=== PATIENT | female | born 1960 | race Caucasian/White ===

== ENCOUNTER 2016-04-30 13:39 | Emergency (ER) | payer OTHER ==
[2016-04-30] MEDS ORDERED: SODIUM CHLORIDE 0.9% 1000ML 1,000 ML IVS PRN (13:51)
[2016-04-30] MEDS ORDERED: SODIUM CHLORIDE 0.9% (FLUSH) 10 ML SYG IV PRN (13:51)
[2016-04-30 13:55] VITALS: TEMP 98.2
[2016-04-30] MEDS ORDERED: MORPHINE SULFATE INJ 10 MG/ML VIAL IV ONE (13:58)
--- NOTE | 2016-04-30 14:30 | ED.PDOC ---
History of Present Illness - General Chief Complaint: Trauma Time Seen by Provider: 04/30/16 13:50 Source: patient, RN notes reviewed, Vital Signs reviewed, family - History of Present Illness Initial Comments: Patient does not recall her accident. The information is provided by her who was present. Patient was barrel riding when her horse fell and patient fell off horse. The horse got up and stepped on Patient's lower abdomen and left leg. Patient has pelvic pain, left leg pain, and left hand pain. Her neck is sore. She does not remember anything that happened. She did not lose consciousness. Occurred: just prior to arrival Severity: severe Pain Location: neck, abdomen, upper extremity Method of Injury: fall, other - blunt force trauma Improving Factors: nothing Worsening Factors: movement Loss of Consciousness: no loss of consciousness Associated Symptoms (Fall): abdominal pain, confusion, dizziness, neck pain, other - memory loss Allergies/Adverse Reactions: Allergies NO KNOWN ALLERGY Allergy (Verified 04/30/16 13:58) Home Medications: Ambulatory Orders Naproxen [Naprosyn] 500 mg PO BID #30 tab 04/30/16 Tramadol HCl 50 mg PO Q4H PRN #20 tab 04/30/16 tiZANidine [Zanaflex] 4 mg PO TID PRN #30 tab 04/30/16 Review of Systems - Review of Systems Constitutional: States: weakness EENTM: States: no symptoms reported. Denies: blurred vision Respiratory: States: no symptoms reported Cardiology: States: no symptoms reported Gastrointestinal/Abdominal: States: abdominal pain. Denies: nausea, vomiting Genitourinary: States: no symptoms reported Musculoskeletal: States: joint pain, muscle pain, neck pain Skin: States: change in color - ecchymosis Neurological: States: other - memory loss Endocrine: States: no symptoms reported Hematologic/Lymphatic: States: no symptoms reported All other Systems: Reviewed and Negative Past Medical History (General) - Patient Medical History Hx Seizures: No Hx Asthma: No Hx of COPD: No Hx Cardiac Disorders: No Hx Hypertension: No Hx Diabetes: No Hx Gastroesophageal Reflux: No Surgical History: Hysterectomy - Female History Patient : No Family Medical History - Family History Mother Family History: Unknown Physical Exam - Physical Exam General Appearance: Alert, Obvious distress, Well Groomed Head Injury: no evidence of injury Eye Exam: bilateral normal ENT Exam: hearing grossly normal, no evidence of ENT injury Neck Exam: full range of motion, normal alignment, muscle spasm, paraspinous muscle tender, tender lateral Cardiovascular/Respiratory: regular rate, rhythm, no M/R/G, normal peripheral pulses Gastrointestinal/Abdominal: normal bowel sounds, soft, no organomegaly, tenderness - Lower abdomen Back Exam: normal inspection, no vertebral tenderness Extremity Exam: no pedal edema, pelvis stable, bony-point tenderness, pain with movement, other Neurologic: purchasing/receiving II-XII nml as tested, no motor/sensory deficits, alert, normal mood/affect, oriented x 3 - Pauline Coma Score Best Eye Response (Pauline): (4) open spontaneously Best Verbal Response (Pauline): (5) oriented Best Motor Response ([place]): (6) obeys commands [place] Total: 15 Progress - Progress Progress: 04/30/16 14:28 Shortly after arrival, I discussed transferring Patient to [facility] because they are a Level 2 trauma center. Patient and her declined preparing for transfer at this time and they wanted to wait for the CT results. I explained the risk of waiting and they understood the risks. - Results/Orders Results/Orders: 04/30/16 04/30/16 04/30/16 13:51 14:40 15:09 Temperature 98.2 F Pulse Rate [ 97 H 69 65 APICAL] Respiratory 20 20 12 Rate Blood Pressure 116/82 117/66 115/78 [LEFT BRACHIAL] O2 Sat by Pulse 97 97 65 L Oximetry 04/30/16 16:00 Temperature Pulse Rate [ 67 APICAL] Respiratory 12 Rate Blood Pressure 128/68 [LEFT BRACHIAL] O2 Sat by Pulse 100 Oximetry 04/30/16 13:51 IV Care:Saline Lock per Protoc QSHIFT Telemetry .ONCE Sodium Chloride 0.9% (Flush) [Saline Flush Syringe] 10 ml IV PRN PRN Sodium Chloride 0.9% 1000ML [Ns 1000 ml] 1,000 ml IVS .QD EKG Stat 04/30/16 13:52 Hold Metformin x 48Hrs [id number] EKG Assessment ONCE Pulse Oximetry Assessment DAILY 05/01/16 09:00 Pulse Ox Daily Laboratory Results WBC 6.1 K/mm3 (4.8-10.8) 04/30/16 14:15 RBC 4.46 M/mm3 (4.20-5.40) 04/30/16 14:15 Hgb 13.2 gm/dL (12.0-16.0) 04/30/16 14:15 Hct 39.8 % (36.0-47.0) 04/30/16 14:15 MCV 89.2 fl (81.0-99.0) 04/30/16 14:15 MCH 29.5 pg (27.0-31.0) 04/30/16 14:15 MCHC 33.1 g/dL (33.0-37.0) 04/30/16 14:15 RDW 12.3 % (11.5-14.5) 04/30/16 14:15 Plt Count 233 K/mm3 (130-400) 04/30/16 14:15 MPV 9.1 fl (7.40-10.4) 04/30/16 14:15 Absolute Neuts (auto) 3.90 K/uL (1.8-6.8) 04/30/16 14:15 Absolute Lymphs (auto) 1.70 K/uL (1.0-3.4) 04/30/16 14:15 Absolute Monos (auto) 0.40 K/uL (0.2-0.8) 04/30/16 14:15 Absolute Eos (auto) 0.10 K/uL (0.0-0.4) 04/30/16 14:15 Absolute Basos (auto) 0.00 K/uL (0.0-0.1) 04/30/16 14:15 Neutrophils % 63.6 % (42.0-78.0) 04/30/16 14:15 Lymphocytes % 28.1 % (20.0-50.0) 04/30/16 14:15 Monocytes % 6.0 % (2.0-9.0) 04/30/16 14:15 Eosinophils % 1.6 % (1.0-5.0) 04/30/16 14:15 Basophils % 0.7 % (0.0-2.0) 04/30/16 14:15 PT 11.5 SECONDS (9.4-12.5) 04/30/16 14:15 INR 1.020 04/30/16 14:15 PTT (SP) 25.4 SECONDS (25.1-36.5) 04/30/16 14:15 Sodium 140 mmol/L (135-145) 04/30/16 14:15 Potassium 3.6 mmol/L (3.6-5.0) 04/30/16 14:15 Chloride 106 mmol/L (101-111) 04/30/16 14:15 Carbon Dioxide 25 mmol/L (21-31) 04/30/16 14:15 Anion Gap 12.6 (12-18) 04/30/16 14:15 BUN 24 mg/dL (7-18) H 04/30/16 14:15 Creatinine 0.70 mg/dL (0.6-1.3) 04/30/16 14:15 BUN/Creatinine Ratio 34.3 (10-20) H 04/30/16 14:15 Random Glucose 112 mg/dL (70-105) H 04/30/16 14:15 Serum Osmolality 284.2 mOsm/L (275-295) 04/30/16 14:15 Calcium 9.2 mg/dL (8.4-10.2) 04/30/16 14:15 Total Bilirubin 0.4 mg/dL (0.2-1.0) 04/30/16 14:15 AST 33 IU/L (10-42) 04/30/16 14:15 ALT 27 IU/L (10-60) 04/30/16 14:15 Alkaline Phosphatase 56 IU/L (42-121) 04/30/16 14:15 Serum Total Protein 7.3 gm/dL (6.4-8.2) 04/30/16 14:15 Albumin 4.5 g/dl (3.2-5.5) 04/30/16 14:15 Globulin 2.8 gm/dL (2.3-3.5) 04/30/16 14:15 Albumin/Globulin Ratio 1.6 (1.1-1.9) 04/30/16 14:15 Amylase 91 U/L (28-100) 04/30/16 14:15 Urine Color Yellow (Yellow) 04/30/16 15:11 Urine Appearance Clear (Clear) 04/30/16 15:11 Urine pH 7.0 (4.5-7.8) 04/30/16 15:11 Ur Specific [place] 1.015 (1.005-1.030) 04/30/16 15:11 Urine Protein Negative mg/dL 04/30/16 15:11 Urine Glucose (UA) Negative mg/dL (Negative) 04/30/16 15:11 Urine Ketones Negative mg/dL (NEGATIVE) 04/30/16 15:11 Urine Blood Negative (Negative) 04/30/16 15:11 Urine Nitrite Negative 04/30/16 15:11 Urine Bilirubin Negative (NEGATIVE) 04/30/16 15:11 Urine Urobilinogen 0.2 mg/dL (0.2-1.0) 04/30/16 15:11 Ur Leukocyte Esterase Negative (Negative) 04/30/16 15:11 Urine RBC 0 /hpf 04/30/16 15:11 Urine WBC 0 /hpf 04/30/16 15:11 Ur Epithelial Cells 0 /hpf 04/30/16 15:11 Urine Bacteria 0 04/30/16 15:11 Ethyl Alcohol 0.00 mg/dL (0-79) 04/30/16 14:15 CT: Head, c-spine, abdomen: No acute process in any of them. - EKG/XRAY/CT XRAY: hand - Left Xray Comments: Fracture base of 1st metacarpal CT Ordered: Yes CT Interpretation Call Back: No - Report sent - Additional EKG/XRAY/Consults XRAY #2: chest Comments: No acute process Departure - Departure Clinical Impression: Animal-rider injured by fall from or being thrown from horse in noncollision accident, Memory loss, short term Fracture of hand Qualifiers: Encounter type: initial encounter Fracture type: closed Laterality: left Qualifier Code: (S62.92XA) Unspecified fracture of left wrist and hand, initial encounter for closed fracture Sprain of neck Qualifiers: Encounter type: initial encounter Qualifier Code: (S13.9XXA) Sprain of joints and ligaments of unspecified parts of neck, initial encounter Contusion of abdominal wall Qualifiers: Encounter type: initial encounter Qualifier Code: (S30.1XXA) Contusion of abdominal wall, initial encounter Contusion of leg, left Qualifiers: Encounter type: initial encounter Qualifier Code: (S80.12XA) Contusion of left lower leg, initial encounter Closed head injury Qualifiers: Encounter type: initial encounter Qualifier Code: (S09.90XA) Unspecified injury of head, initial encounter Time of Disposition: 16:48 Disposition: Discharge to Home or Self Care Condition: Fair Departure Forms: ED Discharge - Pt. Copy, Patient Portal Self Enrollment Instructions: DI for Closed Head Injury, Closed Head Injury, Contusion, DI for Contusion, Neck Sprain, DI for Neck Sprain, DI for a Hand Fracture Diet: resume usual diet Activity: increase activity as tolerated Prescriptions: Naproxen [Naprosyn] 500 mg PO BID #30 tab Tramadol HCl 50 mg PO Q4H PRN #20 tab PRN Reason: Pain tiZANidine [Zanaflex] 4 mg PO TID PRN #30 tab PRN Reason: Muscle Spasms Home Medications: Ambulatory Orders Naproxen [Naprosyn] 500 mg PO BID #30 tab 04/30/16 Tramadol HCl 50 mg PO Q4H PRN #20 tab 04/30/16 tiZANidine [Zanaflex] 4 mg PO TID PRN #30 tab 04/30/16 Additional Instructions: Follow up for any head injury or abdominal pain concerns.
--- NOTE | 2016-04-30 14:54 | RAD ---
EXAM DESCRIPTION: Chest,1 View CLINICAL HISTORY: Fell off of and stepped on by horse COMPARISON: None FINDINGS: Cardiac silhouette is within normal limits. Aorta is tortuous. There is no focal parenchymal or pleural disease. There is no acute osseous process visualized. IMPRESSION: No evidence of acute cardiopulmonary disease. Electronically signed by: Rufus Villalba MD 04/30/2016 2:53 PM COMMUTATOR TESTER
--- NOTE | 2016-04-30 15:09 | CT ---
EXAM DESCRIPTION: Cervical Spine 04/30/2016 3:06 PM SKEIN YARN DYER HELPER CLINICAL HISTORY: 56 years, Female, Fall from and stepped on by horse/neck pain COMPARISON: None. TECHNIQUE: Volumetric CT acquisition was performed through the cervical spine. Images in the axial, coronal, and sagittal planes were presented for interpretation. FINDINGS: There are 7 cervical type vertebral bodies in normal anatomic alignment. There is no evidence of acute fracture or dislocation. There are no significant degenerative changes. At the C2/C3 level, there is normal disk space height without significant canal or neuroforaminal narrowing. At the C3/C4 level, there is normal disk space height without significant canal or neuroforaminal narrowing. At the C4/C5 level, there is mild loss of disc space height with mild uncovertebral hypertrophy on the right. There is no significant canal or neuroforaminal narrowing bilaterally. At the C5/C6 level, there is loss of disc space height with a small concentric disc osteophyte complex. There is no significant canal or neuroforaminal narrowing bilaterally. At the C6/C7 level, there is normal disk space height without significant canal or neuroforaminal narrowing. The paravertebral and prevertebral soft tissues are normal. There are no fluid collections or evidence of soft tissue thickening. The musculature and soft tissue structures of the neck are within normal limits. There are no pathologically enlarged lymph nodes. The visualized vasculature is normal. The visualized portions of the brain and skull base are grossly unremarkable. Limited evaluation of the lung apices demonstrate no gross abnormalities. IMPRESSION: 1. No acute fracture or dislocation of the cervical spine. 2. Minor degenerative changes. Electronically signed by: Reyes Cordova MD 04/30/2016 3:08 PM SKEIN YARN DYER HELPER
--- NOTE | 2016-04-30 15:30 | RAD ---
EXAM DESCRIPTION: Hand,Left 3 Views (accession [id number]), Wrist,Left 3 Views (accession [id number]) CLINICAL HISTORY: HORSE ACCIDENT COMPARISON: None FINDINGS: AP, lateral and oblique views of the left hand and wrist were submitted. There is an acute nondisplaced fracture at the medial base of the first metacarpal bone extending into the articulating surface. There is no other fracture visualized. Bone mineralization is within normal limits. There is no radiopaque foreign body material IMPRESSION: Acute nondisplaced fracture at the base of the first metacarpal bone. Electronically signed by: Rufus Villalba MD 04/30/2016 3:29 PM SOCIAL MEDIA CONTENT MANAGER
--- NOTE | 2016-04-30 15:30 | RAD ---
EXAM DESCRIPTION: Hand,Left 3 Views (accession [id number]), Wrist,Left 3 Views (accession [id number]) CLINICAL HISTORY: HORSE ACCIDENT COMPARISON: None FINDINGS: AP, lateral and oblique views of the left hand and wrist were submitted. There is an acute nondisplaced fracture at the medial base of the first metacarpal bone extending into the articulating surface. There is no other fracture visualized. Bone mineralization is within normal limits. There is no radiopaque foreign body material IMPRESSION: Acute nondisplaced fracture at the base of the first metacarpal bone. Electronically signed by: Rufus Villalba MD 04/30/2016 3:29 PM TIMBER MANAGEMENT SPECIALIST
--- NOTE | 2016-04-30 16:01 | CT ---
Clinical History : Fall from and stepped on by horse/memory loss/LOC , MAIN Exam : CT Head without contrast 04/30/2016 1:51 PM FILTER TANK TENDER HELPER Comparisons : none. Technique : Volumetric CT acquisition was performed through the brain. Images in the axial, coronal, and sagittal planes were presented for interpretation. Radiation dose : DLP-773.97 Findings: The soft tissue structures of the face, scalp, and orbits are normal. The globes remain intact. The visualized portions of the paranasal sinuses and mastoid air-cells are clear. The calvarium remains intact . There is no acute intracranial hemorrhage, midline shift, or mass effect. The ventricles are normal in size and the posterior fossa structures are normal in appearance. Limited evaluation of the vasculature demonstrates no gross abnormalities. There is no CT evidence of acute infarction. Impression: No acute intracranial process. Electronically signed by: Reyes Cordova MD 04/30/2016 2:53 PM FILTER TANK TENDER HELPER
[2016-04-30 17:18] VITALS: BP 124/72; O2SAT 97
--- NOTE | 2016-05-02 00:59 | RAD ---
EXAM DESCRIPTION: Chest,1 View CLINICAL HISTORY: Fell off of and stepped on by horse COMPARISON: None FINDINGS: Cardiac silhouette is within normal limits. Aorta is tortuous. There is no focal parenchymal or pleural disease. There is no acute osseous process visualized. IMPRESSION: No evidence of acute cardiopulmonary disease. Electronically signed by: Rufus Villalba MD 04/30/2016 2:53 PM ENGINEER GAS PUMPING STATION
--- NOTE | 2016-05-02 00:59 | CT ---
EXAM DESCRIPTION: Cervical Spine 04/30/2016 3:06 PM MATE FISHING VESSEL CLINICAL HISTORY: 56 years, Female, Fall from and stepped on by horse/neck pain COMPARISON: None. TECHNIQUE: Volumetric CT acquisition was performed through the cervical spine. Images in the axial, coronal, and sagittal planes were presented for interpretation. FINDINGS: There are 7 cervical type vertebral bodies in normal anatomic alignment. There is no evidence of acute fracture or dislocation. There are no significant degenerative changes. At the C2/C3 level, there is normal disk space height without significant canal or neuroforaminal narrowing. At the C3/C4 level, there is normal disk space height without significant canal or neuroforaminal narrowing. At the C4/C5 level, there is mild loss of disc space height with mild uncovertebral hypertrophy on the right. There is no significant canal or neuroforaminal narrowing bilaterally. At the C5/C6 level, there is loss of disc space height with a small concentric disc osteophyte complex. There is no significant canal or neuroforaminal narrowing bilaterally. At the C6/C7 level, there is normal disk space height without significant canal or neuroforaminal narrowing. The paravertebral and prevertebral soft tissues are normal. There are no fluid collections or evidence of soft tissue thickening. The musculature and soft tissue structures of the neck are within normal limits. There are no pathologically enlarged lymph nodes. The visualized vasculature is normal. The visualized portions of the brain and skull base are grossly unremarkable. Limited evaluation of the lung apices demonstrate no gross abnormalities. IMPRESSION: 1. No acute fracture or dislocation of the cervical spine. 2. Minor degenerative changes. Electronically signed by: Reyes Cordova MD 04/30/2016 3:08 PM MATE FISHING VESSEL
--- NOTE | 2016-05-02 00:59 | CT ---
Clinical History : Fall from and stepped on by horse/memory loss/LOC , MAIN Exam : CT Head without contrast 04/30/2016 1:51 PM WIRE SPIRAL BINDER Comparisons : none. Technique : Volumetric CT acquisition was performed through the brain. Images in the axial, coronal, and sagittal planes were presented for interpretation. Radiation dose : DLP-773.97 Findings: The soft tissue structures of the face, scalp, and orbits are normal. The globes remain intact. The visualized portions of the paranasal sinuses and mastoid air-cells are clear. The calvarium remains intact . There is no acute intracranial hemorrhage, midline shift, or mass effect. The ventricles are normal in size and the posterior fossa structures are normal in appearance. Limited evaluation of the vasculature demonstrates no gross abnormalities. There is no CT evidence of acute infarction. Impression: No acute intracranial process. Electronically signed by: Reyes Cordova MD 04/30/2016 2:53 PM WIRE SPIRAL BINDER
--- NOTE | 2016-05-02 01:00 | RAD ---
EXAM DESCRIPTION: Hand,Left 3 Views (accession [id number]), Wrist,Left 3 Views (accession [id number]) CLINICAL HISTORY: HORSE ACCIDENT COMPARISON: None FINDINGS: AP, lateral and oblique views of the left hand and wrist were submitted. There is an acute nondisplaced fracture at the medial base of the first metacarpal bone extending into the articulating surface. There is no other fracture visualized. Bone mineralization is within normal limits. There is no radiopaque foreign body material IMPRESSION: Acute nondisplaced fracture at the base of the first metacarpal bone. Electronically signed by: Rfuus Villalba MD 04/30/2016 3:29 PM TIRE ROOM SUPERVISOR
--- NOTE | 2016-05-02 01:00 | RAD ---
EXAM DESCRIPTION: Hand,Left 3 Views (accession [id number]), Wrist,Left 3 Views (accession [id number]) CLINICAL HISTORY: HORSE ACCIDENT COMPARISON: None FINDINGS: AP, lateral and oblique views of the left hand and wrist were submitted. There is an acute nondisplaced fracture at the medial base of the first metacarpal bone extending into the articulating surface. There is no other fracture visualized. Bone mineralization is within normal limits. There is no radiopaque foreign body material IMPRESSION: Acute nondisplaced fracture at the base of the first metacarpal bone. Electronically signed by: Rufus Villalba MD 04/30/2016 3:29 PM CLEANING STAFF SUPERVISOR
--- NOTE | 2016-05-02 01:00 | CT ---
Clinical History : Fall from and stepped on by horse/memory loss/LOC , MAIN Exam : CT Head without contrast 04/30/2016 1:51 PM HOGSHEAD DUMPER Comparisons : none. Technique : Volumetric CT acquisition was performed through the brain. Images in the axial, coronal, and sagittal planes were presented for interpretation. Radiation dose : DLP-773.97 Findings: The soft tissue structures of the face, scalp, and orbits are normal. The globes remain intact. The visualized portions of the paranasal sinuses and mastoid air-cells are clear. The calvarium remains intact . There is no acute intracranial hemorrhage, midline shift, or mass effect. The ventricles are normal in size and the posterior fossa structures are normal in appearance. Limited evaluation of the vasculature demonstrates no gross abnormalities. There is no CT evidence of acute infarction. Impression: No acute intracranial process. Electronically signed by: Reyes Cordova MD 04/30/2016 2:53 PM HOGSHEAD DUMPER
--- NOTE | 2016-05-02 01:08 | CT ---
EXAM DESCRIPTION: Abdomen/Pelvis w/Contrast 04/30/2016 3:00 PM TERMINAL MAKE UP OPERATOR CLINICAL HISTORY: 56 years, Female, Fall from and stepped on by horse/pelvic pain COMPARISON: [None] TECHNIQUE: Following the administration of intravenous contrast, volumetric CT acquisition was performed through the abdomen and pelvis. Images in the axial and coronal planes were presented for interpretation FINDINGS: The visualized portions of the lung bases are clear. The cardiomediastinal structures are within normal limits. There is no free air, blood, or fluid within the abdomen/pelvis. There is no acute solid organ injury to the liver, spleen, or kidneys. There is no acute fracture or dislocation of the visualized ribs, lumbar spine, or bony pelvis. There is no acute traumatic injury to the visualized intra-abdominal vasculature. Within the upper abdomen, the liver and spleen are normal in size and morphology. The gallbladder is normal in morphology. The intra/extrahepatic biliary tree is normal in appearance. The pancreas and adrenal glands are normal. The kidneys are normal in size bilaterally. The ureters are normal in course and caliber. There is a left renal cortical cyst along the upper pole of the kidney measuring 8 mm in diameter. There is a 6 mm cyst in the mid right kidney on axial image 32. The stomach and small intestines are within normal limits without evidence of bowel dilation or wall thickening. The appendix is well-visualized and normal, best seen on axial image 59 lateral to the cecum. The colon is stool filled and unremarkable. Within the pelvis, the bladder and rectum are normal. The uterus is surgically absent. The ovaries are not well visualized. There are no pathologically enlarged inguinal, retroperitoneal, portacaval, or mesenteric lymph nodes. The soft tissue structures of the abdominal wall are normal. There are minor degenerative changes of the lumbar spine, most pronounced at the L2/L3 level The abdominal aorta and its primary branches are normal in course and caliber. Limited evaluation of the venous structures demonstrates no gross abnormalities. IMPRESSION: 1. No acute intra-abdominal traumatic injury. 2. Status post hysterectomy. Electronically signed by: Reyes Cordova MD 04/30/2016 3:03 PM TERMINAL MAKE UP OPERATOR
--- NOTE | 2016-05-02 05:24 | CT ---
Clinical History : Fall from and stepped on by horse/memory loss/LOC , MAIN Exam : CT Head without contrast 04/30/2016 1:51 PM SQL DATABASE PROGRAMMER Comparisons : none. Technique : Volumetric CT acquisition was performed through the brain. Images in the axial, coronal, and sagittal planes were presented for interpretation. Radiation dose : DLP-773.97 Findings: The soft tissue structures of the face, scalp, and orbits are normal. The globes remain intact. The visualized portions of the paranasal sinuses and mastoid air-cells are clear. The calvarium remains intact . There is no acute intracranial hemorrhage, midline shift, or mass effect. The ventricles are normal in size and the posterior fossa structures are normal in appearance. Limited evaluation of the vasculature demonstrates no gross abnormalities. There is no CT evidence of acute infarction. Impression: No acute intracranial process. Electronically signed by: Reyes Cordova MD 04/30/2016 2:53 PM SQL DATABASE PROGRAMMER
== END 2016-04-30 17:27 | disposition home or self-care (01) ==
LOC: ER 13:39
DX: S62.232A Other displaced fracture of base of first metacarpal bone, left hand, initial encounter for closed fracture (principal); S13.9XXA Sprain of joints and ligaments of unspecified parts of neck, initial encounter; S30.1XXA Contusion of abdominal wall, initial encounter; S80.12XA Contusion of left lower leg, initial encounter; S09.90XA Unspecified injury of head, initial encounter; V80.010A Animal-rider injured by fall from or being thrown from horse in noncollision accident, initial encounter
CPT/HCPCS: 36415; 70450; 71010; 72125; 73110; 73130; 74177; 80053; 80320; 81001; 82150; 85025; 85610; 85730; 93005; J2270; J7030